=== PATIENT | male | born 1955 | race Caucasian/White ===

== ENCOUNTER 2019-09-17 18:15 | Inpatient (IN) | payer MEDICARE, OTHER ==
[~2019-09-17] VITALS: Ht 188 cm; Wt 107.2 kg
--- NOTE | 2019-09-17 18:37 | NUR ---
PT TO ROOM 348 DR BARAJAS NOTIFIED, NG TUBE TO LIS.
--- NOTE | 2019-09-17 18:43 | NUR ---
REPORT TO JOAN RN.
--- NOTE | 2019-09-17 20:00 | NUR ---
Patient in bed, is alert and oriented x4. Has NGT to LIS with reddish tinged dark drainage noted. Irrigated with 20cc NS and confirmed placement of tube in stomach. Denies need for pain meds at this time. Abdomen distended, soft with hypoactive BS.
[2019-09-17 20:28] VITALS: BP 153/75; PULSE 81; TEMP 98.2
[2019-09-17 20:29] VITALS: BP 153/75; PULSE 79; TEMP 98.2
[2019-09-17 20:38] LABS: BASO % 0.5 % (0.0-2.0); EOS # 0.1 (0.0-0.7); EOS % 0.8 % (0-4.0); GRAN # 6.5 (1.4-6.5); GRAN % 82.3 % (42.2-75.2); HEMATOCRIT 46.7 % (42.0-52.0); HEMOGLOBIN 15.3 g/dl (13.5-18.0); LYMPH # 0.8 (1.2-3.4); LYMPH % 10.1 % (20.0-51.0); MEAN CELL VOLUME 86 fl (80.0-100.0); MEAN CORPUSCULAR HEMOGLOBIN 28 pg (27.0-31.0); MEAN CORPUSCULAR HGB CONC 33 g/dl (33.0-37.0); MEAN PLATELET VOLUME 9.4 fl (7.4-10.4); MONO # 0.5 (0.1-0.6); PLATELET COUNT 261 K/mm3 (130-400); RED BLOOD COUNT 5.45 M/mm3 (4.20-5.60); REDCELL DISTRIBUTION WIDTH-CV 13.3 % (11.5-14.5)
[2019-09-17] MEDS ORDERED: IMURAN 50MG TAB50 MG PO (20:54)
[2019-09-17] MEDS ORDERED: GLUCOTROL XL5 MG/TAB PO (20:54)
[2019-09-17] MEDS ORDERED: LIPITOR20 MG PO (20:55)
[2019-09-17] MEDS ORDERED: GLUCOPHAGE850 MG/TAB PO (20:56)
[2019-09-17] MEDS ORDERED: NORVASC 5MG5 MG/TAB PO (20:57)
[2019-09-17] MEDS ORDERED: PRIL40 PO (20:57)
[2019-09-17] MEDS ORDERED: IBUDONE PO (20:58)
[2019-09-17] MEDS ORDERED: MULTI VITAMINS1 TAB PO (20:59)
[2019-09-17] MEDS ORDERED: FLEXERIL 1010 MG/TAB PO (20:59)
[2019-09-17] MEDS ORDERED: ASPIRIN 32325 MG/TAB PO (20:59)
[2019-09-17] MEDS ORDERED: NATURE'S BLEND500 M1 PO (21:00)
--- NOTE | 2019-09-17 21:00 | NUR ---
IV Fluids infusing to right forearm without redness or swelling.
[2019-09-17] MEDS ORDERED: NATURAL E400 IU PO (21:01)
[2019-09-17] MEDS ORDERED: LUTEIN20 M1 PO (21:01)
[2019-09-17 21:02] LABS: INR 1.1 (0.8-3.0); PROTHROMBIN TIME 13.4 SECONDS (9.7-12.8)
[2019-09-17 21:03] LABS: ALBUMIN 3.8 gm/dL (3.5-5.0); BILIRUBIN,TOTAL 0.7 mg/dL (0.0-1.0); CALCIUM 9.4 mg/dL (8.4-10.2); CREATININE, serum 1.26 (0.66-1.25); POTASSIUM 4.6 mmol/L (3.4-5.0); TOTAL PROTEIN 6.9 gm/dL (6.4-8.2)
--- NOTE | 2019-09-17 22:50 | NUR ---
Sitting up in bed talking on phone. Pleasant, alert and oriented. Denies pain at this time. NG tube to low intermittent suction. Dark reddish/brown drainage noted in tubing and canister. Bowel sounds hypoactive. Patient explains that he has had some loos stools earlier today. Denies any needs at this time.
[2019-09-18] VITALS (7 sets, daily range): BP systolic 136–169; BP diastolic 68–87; PULSE 71–79; TEMP 97.4–98.1
--- NOTE | 2019-09-18 00:41 | NUR ---
Lying in bed with eyes open watching TV. Denies pain. NG tube remains to low intermittent suction with reddish brown discharge in tubing and cannister. Patient denies further needs at this time.
--- NOTE | 2019-09-18 04:58 | NUR ---
Lying in bed with eyes closed. No signs or symptoms of discomfort noted. NG to low intermittent suction, dark reddish brown drainage in tubing and canister.
[2019-09-18 06:33] LABS: BASO % 0.5 % (0.0-2.0); EOS # 0.1 (0.0-0.7); EOS % 1.5 % (0-4.0); GRAN # 6.1 (1.4-6.5); GRAN % 80.8 % (42.2-75.2); HEMATOCRIT 44.5 % (42.0-52.0); HEMOGLOBIN 14.6 g/dl (13.5-18.0); LYMPH # 0.8 (1.2-3.4); LYMPH % 9.9 % (20.0-51.0); MEAN CELL VOLUME 87 fl (80.0-100.0); MEAN CORPUSCULAR HEMOGLOBIN 29 pg (27.0-31.0); MEAN CORPUSCULAR HGB CONC 33 g/dl (33.0-37.0); MEAN PLATELET VOLUME 9.5 fl (7.4-10.4); MONO # 0.5 (0.1-0.6); PLATELET COUNT 249 K/mm3 (130-400); RED BLOOD COUNT 5.12 M/mm3 (4.20-5.60); REDCELL DISTRIBUTION WIDTH-CV 13.2 % (11.5-14.5)
[2019-09-18 06:46] LABS: ALBUMIN 3.6 gm/dL (3.5-5.0); BILIRUBIN,TOTAL 0.5 mg/dL (0.0-1.0); CALCIUM 9.2 mg/dL (8.4-10.2); CREATININE, serum 1.24 (0.66-1.25); POTASSIUM 4.7 mmol/L (3.4-5.0); TOTAL PROTEIN 6.6 gm/dL (6.4-8.2)
--- NOTE | 2019-09-18 07:00 | NUR ---
Bedside shift report received from MISSY Michel. PT in bed resting with NG to LIS. NPO, denies needs. Will continue to monitor.
--- NOTE | 2019-09-18 08:51 | NUR ---
Assessment charted. Pt c/o pain at 2/10 to back of throat from NG. Pt is feeling weak from no nutritional intake in 6 days. UP ambualted halls with me, gait is a bit unsteady, pt agreeable to get up with assistance. Voiding yellow and clear. Reports 4 liquid stools yesterday, none today. NG back to LIS, dark red drainage. IVF to RW. Will continue to monitor.
[2019-09-18 10:47] LABS: MAGNESIUM 1.9 mg/dL (1.6-2.3); PHOSPHOROUS 4.4 mg/dL (2.5-4.5)
--- NOTE | 2019-09-18 11:18 | NUR ---
Initial visit; Patient thanked Block Inspector for looking in on him and offering encouragement, prayer and God's blessings.
--- NOTE | 2019-09-18 13:51 | NUR ---
SW met with the patient to discuss discharge plan. The patient lives in [place] with his brother, Chance (ph#[phone]). He reports independence with ADLs and has crutches and a wheelchair. The patient's PCP is Dr. Maxi Rasmussen and he receives his medications at [facility]. He reports no difficulties obtaining his meds. The patient DPOA-HC and Living Will are in his chart. His DPOA-HC is his brother, Chance. The patient plans to return home with his brother upon discharge. No additional needs at this time, but SW to continue to follow.
--- NOTE | 2019-09-18 18:26 | NUR ---
DR. Mejía called regarding pt status, updated him and per his orders removed NG tube. Pt tolerated well, sprayed numbing spray per request. Pt tolerating clear liquids well. Did have one liquid stool output this evening. TPN to PICC in [facility]. Will give bedside shift report to nightshift nurse who will resume care.
--- NOTE | 2019-09-18 21:00 | NUR ---
Patient in bed, watching TV. Denies pain. Abdomen distended, bowel sounds hypoactive. Denies nausea after clear liquids. Has PICC to right upper arm with TPN infusing without problem. Voiding without problem. Will monitor for stools.
[2019-09-19 04:00] VITALS: BP 151/70; PULSE 70; TEMP 98.2
--- NOTE | 2019-09-19 04:00 | NUR ---
Patient up to [facility] [place], has large loose stool.
[2019-09-19 07:48] LABS: CALCIUM 9.1 mg/dL (8.4-10.2); CREATININE, serum 1.11 (0.66-1.25); MAGNESIUM 1.8 mg/dL (1.6-2.3); PHOSPHOROUS 3.8 mg/dL (2.5-4.5); POTASSIUM 4.1 mmol/L (3.4-5.0)
[2019-09-19 07:55] VITALS: BP 124/63; PULSE 73; TEMP 97.7
[2019-09-19 12:13] VITALS: BP 147/66; PULSE 76; TEMP 98.1
[2019-09-19 17:16] VITALS: BP 127/63; PULSE 77; TEMP 98.3
--- NOTE | 2019-09-19 18:30 | NUR ---
Patient has been doing well today. He had several loose/liquids stools. He denies pain and nausea. He is tolerating full liuids without issues. TPN infusing. PICC caps changed when TPN changed out. Patient stated he is feeling better. No other changes at this time. Call light within reach.
[2019-09-19 20:00] VITALS: BP 136/60; PULSE 77; TEMP 97.5
--- NOTE | 2019-09-19 20:15 | NUR ---
Pt. sitting up in bed watching TV at this time. Pt. is A&OX3, assessment complete. PICC to rt. upperarm patent. Pt. denies pain or other needs, call light within reach.
[2019-09-20] VITALS: BP 141/66; PULSE 73; TEMP 97.7
[2019-09-20 04:00] VITALS: BP 144/68; PULSE 76; TEMP 98
[2019-09-20 07:41] LABS: CALCIUM 8.9 mg/dL (8.4-10.2); CREATININE, serum 1.13 (0.66-1.25); MAGNESIUM 1.8 mg/dL (1.6-2.3); PHOSPHOROUS 3.9 mg/dL (2.5-4.5)
--- NOTE | 2019-09-20 10:30 | NUR ---
Patient is tolerating his full liquids diet well. No complaints of pain or nausea. He is independent in the room. No other changes at this time. Will check with Dr Mejía on changing his diet. Patient is hoping to discharge today.
[2019-09-20 11:28] VITALS: BP 138/68; PULSE 76; TEMP 97.6
--- NOTE | 2019-09-20 13:00 | NUR ---
Patient is being started on a soft diet. Dr Mejía said if he does well he can go home later this afternoon. Patient verbalized understanding. no other changes at this time. Call light within reach.
--- NOTE | 2019-09-20 17:15 | NUR ---
discontinued PICC line, measured line and equal to insertion length. Held pressure for 10 mins applied dressing.
--- NOTE | 2019-09-20 17:30 | NUR ---
Patient is discharging home. Explained discharge instructions. No questions verbalized. PICC line discontinued my Jerrod Calles RN. Explained patient needs to see his primary doctor to follow up with his diabetes. Also let patient know he can follow up with Dr Mejía as needed. No questions verbalized. All belongings packed up and sent with patient. Patient walked out via wheel chair by Jonatan MAE
== END 2019-09-20 17:30 | disposition home or self-care (01) | DRG 389 ==
LOC: SURG 18:15
PROVIDERS: ADMIT Surgery
PROC: 3E0436Z Introduction of Nutritional Substance into Central Vein, Percutaneous Approach (ICD-10-PCS; principal; 2019-09-18)
PROC: 02HV33Z Insertion of Infusion Device into Superior Vena Cava, Percutaneous Approach (ICD-10-PCS; 2019-09-18)
DX: K56.600 Partial intestinal obstruction, unspecified as to cause (principal); E44.0 Moderate protein-calorie malnutrition; J84.89 Other specified interstitial pulmonary diseases; E11.9 Type 2 diabetes mellitus without complications; E78.5 Hyperlipidemia, unspecified; I10 Essential (primary) hypertension; Z95.1 Presence of aortocoronary bypass graft; Z90.49 Acquired absence of other specified parts of digestive tract; Z87.891 Personal history of nicotine dependence; Z68.30 Body mass index [BMI] 30.0-30.9, adult
CPT/HCPCS: A4217; A9284; C1751; C1892; C9113; J0610; J1815; J3411; J3475; J3480; J7120; J7131; J7500